=== PATIENT | female | born 1995 | race Caucasian/White ===

== ENCOUNTER 2018-03-20 11:03 | Emergency (ER) | payer BC, OTHER ==
[2018-03-20] MEDS ORDERED: ONDANSETRON 4 MG/2 ML VIAL IVP ONE (11:53)
[2018-03-20] MEDS ORDERED: NS 1,000 ML IV ONE (11:53)
--- NOTE | 2018-03-20 11:57 | EDPHY ---
H & P Stated Complaint: n/v Time Seen by Provider: 03/20/18 11:45 HPI/ROS: CHIEF COMPLAINT: Nausea vomiting x5 days HISTORY OF PRESENT ILLNESS: 22-year-old female generally healthy, remote history of appendectomy, complaining of nausea vomiting for the past 5 days. Her roommates have been sick with similar which started approximately the same time. Her roommates are now asymptomatic. Patient describes feeling well during the daytime however typically during the evening she will have to wake up wants to have an episode of vomiting and 1 staff an episode of diarrhea. Typically 1 episode of diarrhea per 24 hour period . No abdominal pain. No fever or chills. No international travel. No recent antibiotic use. No melena or hematochezia. No urinary symptoms REVIEW OF SYSTEMS: 10 systems reviewed and negative with the exception of the elements mentioned in the history of present illness PAST MEDICAL & SURGICAL HISTORY: Appendectomy in 2014 SOCIAL HISTORY:Nonsmoker. Student. PHYSICAL EXAM (Prior to examination, patient consented to physical exam, hands were washed and my usual and customary physical exam procedures followed) 1) GENERAL: Well-developed, well-nourished, alert and oriented. Appears to be in no acute distress. Smiling, conversive 2) HEAD: Normocephalic, atraumatic 3) HEENT: Pupils equal, round, reactive to light bilaterally. Sclera anicteric. Nasopharynx, oropharynx, clear, no lesions. Moist Mucous membranes. 4) NECK: Full range of motion, no meningeal signs. 5) LUNGS: Clear auscultation bilaterally, no wheezes, no rhonchi, no retractions. 6) HEART: Regular rate and rhythm, no murmur, no heave, no gallop. 7) ABDOMEN: No guarding, no rebound, no focal tenderness, negative McBurney's, negative Main's, negative Rovsing's, negative peritoneal sign, unable to elicit any abdominal pain. Negative heel tap. 8) MUSCULOSKELETAL: Moving all extremities, no focal areas of tenderness, no obvious trauma. No peripheral edema or discoloration. 9) BACK: No CVA tenderness, no midline vertebral tenderness, no fluctuance, no step-off, no obvious trauma, no visual or palpable abnormality. 10) SKIN: No rash, no petechiae. 11) Psychiatric: Patient is oriented X 3, there is no agitation. DIFFERENTIAL DIAGNOSIS: My differential diagnosis includes, but is not limited to, acute appendicitis, acute cholecystitis, bowel obstruction, acute pancreatitis, ovarian torsion, ectopic , gastritis. The patient understands that this diagnosis is provisional and can never be 100% accurate. This is a partial list of diagnoses considered. These considerations are based on history, physical exam, past history and reassessment. - Personal History LMP (Females 10-55): 1-7 Days Ago Current Tetanus/Diphtheria Vaccine: Yes Current Tetanus Diphtheria and Acellular Pertussis (TDAP): Yes - Medical/Surgical History Hx Asthma: No Hx Chronic Respiratory Disease: No Hx Diabetes: No Hx Cardiac Disease: No Hx Renal Disease: No Hx Cirrhosis: No Hx Alcoholism: No Hx HIV/AIDS: No Hx Splenectomy or Spleen Trauma: No Other PMH: pmh- Mariana. psh- B femoral, appy - Social History Smoking Status: Never smoked Constitutional: Initial Vital Signs Temperature (C) 37.1 C 03/20/18 11:08 Heart Rate 72 03/20/18 11:08 Respiratory Rate 16 03/20/18 11:08 Blood Pressure 119/63 03/20/18 11:08 O2 Sat (%) 94 03/20/18 11:08 O2 Delivery Mode Room Air Allergies/Adverse Reactions: peach Allergy (Verified 02/02/15 14:54) Home Medications: Medication Instructions Recorded Amitriptyline HCl [Elavil 10 mg 30 mg PO HS 02/03/15 (*)] Norgestimate-Ethinyl Estradiol 1 each PO DAILY 02/03/15 [Ortho Tri-Cyclen Lo Tablet] Spironolactone [Aldactone] 150 mg PO DAILY 02/03/15 Amitriptyline HCl [Elavil 10 mg 30 mg PO HS #0 tab 02/04/15 (*)] Ondansetron Odt [Zofran Odt] 4 mg PO Q4PRN PRN #10 tab 03/20/18 Medical Decision Making ED Course/Re-evaluation: 11:56 a.m.: I saw this patient independently based on established practice protocols. Care of patient under supervision of secondary supervising physician Dr Garza . Will administer IV fluids , check laboratory studies 1:19 p.m.: Re-evaluation, reviewed the patient's laboratory studies. She is not . Her abdomen remained soft no guarding no rebound. Doubt acute surgical abdominal pathology. At this time I do not think that more advanced diagnostic studies are indicated. She describes at a maximum 1 episode of loose stool per day . I do not think that stool PCR testing indicated at this time. I provided her with Gastroenterology follow-up. She is able tolerate oral intake. I have observed her tolerating oral intake. Plan will be discharge home. My Usual hand customary abdominal precautions instructions provided. - Data Points Laboratory Results: Laboratory Results 03/20/18 12:20 03/20/18 12:20 03/20/18 03/20/18 03/20/18 12:20 12:20 12:20 WBC 4.24 10^3/uL 10^3/uL (3.80-9.50) RBC 4.18 10^6/uL 10^6/uL (4.18-5.33) Hgb 13.3 g/dL g/dL (12.6-16.3) Hct 38.9 % % (38.0-47.0) MCV 93.1 fL fL (81.5-99.8) MCH 31.8 pg pg (27.9-34.1) MCHC 34.2 g/dL g/dL (32.4-36.7) RDW 12.5 % % (11.5-15.2) Plt Count 225 10^3/uL 10^3/uL (150-400) MPV 8.8 fL fL (8.7-11.7) Neut % (Auto) 48.6 % % (39.3-74.2) Lymph % (Auto) 37.5 % % (15.0-45.0) [place] % (Auto) 12.5 % % (4.5-13.0) Eos % (Auto) 0.7 % % (0.6-7.6) Baso % (Auto) 0.2 % L % (0.3-1.7) Nucleat RBC Rel Count 0.0 % % (0.0-0.2) Absolute Neuts (auto) 2.06 10^3/uL 10^3/uL (1.70-6.50) Absolute Lymphs (auto) 1.59 10^3/uL 10^3/uL (1.00-3.00) Absolute Monos (auto) 0.53 10^3/uL 10^3/uL (0.30-0.80) Absolute Eos (auto) 0.03 10^3/uL 10^3/uL (0.03-0.40) Absolute Basos (auto) 0.01 10^3/uL L 10^3/uL (0.02-0.10) Absolute Nucleated RBC 0.00 10^3/uL 10^3/uL (0-0.01) Immature Gran % 0.5 % % (0.0-1.1) Immature Gran # 0.02 10^3/uL 10^3/uL (0.00-0.10) Sodium 137 mEq/L mEq/L (135-145) Potassium 3.8 mEq/L mEq/L (3.3-5.0) Chloride 102 mEq/L mEq/L (97-110) Carbon Dioxide 30 mEq/l mEq/l (22-31) Anion Gap 5 mEq/L L mEq/L (6-14) BUN 9 mg/dL mg/dL (7-23) Creatinine 0.8 mg/dL mg/dL (0.6-1.0) Estimated GFR > 60 Glucose 88 mg/dL mg/dL (70-100) Calcium 8.5 mg/dL mg/dL (8.5-10.4) Total Bilirubin 0.3 mg/dL mg/dL (0.1-1.4) Conjugated Bilirubin 0.2 mg/dL mg/dL (0.0-0.5) Unconjugated Bilirubin 0.1 mg/dL mg/dL (0.0-1.1) AST 35 IU/L IU/L (14-46) ALT 59 IU/L H IU/L (9-52) Alkaline Phosphatase 43 IU/L IU/L (38-126) Total Protein 6.3 g/dL g/dL (6.3-8.2) Albumin 3.6 g/dL g/dL (3.5-5.0) Lipase 54 IU/L IU/L (23-300) Beta HCG, Qual NEGATIVE Medications Given: Discontinued Medications Sodium Chloride (Ns) 1,000 mls @ 0 mls/hr IV EDNOW ONE; Wide Open PRN Reason: Protocol Stop: 03/20/18 11:54 Last Admin: 03/20/18 12:06 Dose: 1,000 mls Ondansetron HCl (Zofran) 4 mg IVP EDNOW ONE Stop: 03/20/18 11:54 Last Admin: 03/20/18 12:07 Dose: 4 mg Departure - Departure Disposition: Home, Routine, Self-Care Clinical Impression: Nausea & vomiting Qualifiers: Vomiting type: unspecified Vomiting Intractability: non-intractable Qualified Code(s): R11.2 - Nausea with vomiting, unspecified Condition: Good Instructions: Acute Nausea and Vomiting (ED) Additional Instructions: Seek immediate medical attention if you develop new or worsening symptoms, if you develop fevers, chills, inability to tolerate oral intake or any other symptoms that concerns you. Referrals: Swapnil Guerrero MD [Medical Doctor] - 5-7 days, call for appt. Prescriptions: Ondansetron Odt [Zofran Odt] 4 mg PO Q4PRN PRN #10 tab PRN Reason: Nausea
[2018-03-20 12:49] LABS: PLATELET COUNT 225 10^3/uL (150-400)
[2018-03-20 13:24] VITALS: BP 108/71
== END 2018-03-20 13:31 | disposition home or self-care (01) ==
DX: R11.2 Nausea with vomiting, unspecified (principal); R19.7 Diarrhea, unspecified; E86.9 Volume depletion, unspecified
CPT/HCPCS: 96374; J2405